=== PATIENT | male | born 1975 | race Caucasian/White ===

== ENCOUNTER 2018-08-14 13:38 | Emergency (ER) | payer OTHER, MEDICARE ==
[2018-08-14] MEDS ORDERED: Sodium Chloride 0.9% 10 ML Syringe FLUSH PRN (13:54)
[2018-08-14] MEDS ORDERED: Sodium Chloride 0.9% 1,000 ML IV ONE (14:08)
--- NOTE | 2018-08-14 14:19 | EDM.PDOC ---
ED HPI GENERAL MEDICAL PROBLEM - General Chief Complaint: General Stated Complaint: HEART RACING/PANIC ATTACK? Time Seen by Provider: 08/14/18 14:07 Source of Information: Reports: Patient History Limitations: Reports: No Limitations - History of Present Illness INITIAL COMMENTS - FREE TEXT/NARRATIVE: Patient is a 43-year-old gentleman who presents to the emergency department this afternoon with a complaint of palpitations. Patient states that approximately 3 hours ago, he felt anxious and noticed that his heart rate increased. Patient took his pulse and found to be 120 bpm. Also states that he felt a tingling sensation in his face. However he has had this on and off for about a week. He admits to smoking cessation 7 days ago. He is not currently taking any nicotine patch or other medication. Patient denies chest pain, shortness of breath, fever, lower extremity edema, early family cardiac history, Onset: Gradual Duration: Hour(s):, Improving Quality: Reports: Other (Denies chest pain) Improves with: Reports: Other (Spontaneously) Worsens with: Reports: Other (Anxiety) Context: Reports: Other (At rest) - Related Data Allergies Allergy/AdvReac Type Severity Reaction Status Date / Time No Known Drug Allergies Allergy Other Verified 08/14/18 13:41 Home Meds: Home Meds . [No Known Home Meds] 08/14/18 [History] Social & Family History - Tobacco Use Smoking Status *Q: Former Smoker Years of Tobacco use: 22 Packs/Tins Daily: 1 Used Tobacco, but Quit: Yes Month/Year Tobacco Last Used: 08/09/18 ED ROS GENERAL - Review of Systems Review Of Systems: ROS reveals no pertinent complaints other than HPI. Constitutional: Reports: No Symptoms HEENT: Reports: No Symptoms Respiratory: Reports: No Symptoms Cardiovascular: Reports: Palpitations Endocrine: Reports: No Symptoms GI/Abdominal: Reports: No Symptoms : Reports: No Symptoms Musculoskeletal: Reports: No Symptoms Skin: Reports: No Symptoms Neurological: Reports: Tingling (Bilateral facial cheeks) Psychiatric: Reports: Anxiety Hematologic/Lymphatic: Reports: No Symptoms Immunologic: Reports: No Symptoms ED EXAM, GENERAL - Physical Exam Exam: See Below Exam Limited By: No Limitations General Appearance: Alert, WD/WN, No Apparent Distress Eye Exam: Bilateral Eye: Normal Inspection Ears: Normal External Exam, Normal Canal, Normal TMs Nose: Normal Inspection, Normal Mucosa, No Blood Throat/Mouth: Normal Inspection, Normal Oropharynx, No Airway Compromise Head: Atraumatic, Normocephalic Neck: Normal Inspection, Supple, Non-Tender, Full Range of Motion Respiratory/Chest: No Respiratory Distress, Lungs Clear, Normal Breath Sounds, No Accessory Muscle Use, Chest Non-Tender Cardiovascular: Regular Rate, Rhythm, No Murmur GI/Abdominal: Normal Bowel Sounds, Non-Tender, No Organomegaly, No Distention, No Abnormal Bruit, No Mass Back Exam: Normal Inspection. 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) Neurological: Alert, Oriented, CN II-XII Intact, Normal Cognition, No Motor/ Sensory Deficits Psychiatric: Anxious Skin Exam: Warm, Dry, Intact, Normal Color, No Rash Lymphatic: No Adenopathy EKG INTERPRETATION EKG Date: 08/14/18 Time: 13:55 Rhythm: Other (Sinus tachycardia) Rate (Beats/Min): 105 Krebs: Normal P-Wave: Present QRS: Normal ST-T: Normal QT: Normal Comparison: NA - No Prior EKG Course - Vital Signs Last Recorded V/S: Last Vital Signs Temp 98.9 F 08/14/18 13:45 Pulse 120 H 08/14/18 13:45 Resp 16 08/14/18 13:45 BP 168/101 H 08/14/18 13:45 Pulse Ox 98 08/14/18 13:45 - Orders/Labs/Meds Orders: Active Orders 24 hr Category Date Time Status EKG Documentation Completion [RC] ASDIRECTED Care 08/14/18 13:54 Active Peripheral IV Care [RC] . DIRECTED Care 08/14/18 13:55 Active Sodium Chloride 0.9% @ 999 MLS/HR (1000ml) Med 08/14/18 14:08 Ordered Sodium Chloride 0.9% [Normal Saline] 1,000 ml IV .BOLUS Sodium Chloride 0.9% [Saline Flush] Med 08/14/18 13:54 Active 10 ml FLUSH Q8HR PRN Peripheral IV Insertion Adult [OM.PC] Routine Oth 08/14/18 13:54 Ordered Medication Orders Sodium Chloride (Normal Saline) 1,000 mls @ 999 mls/hr IV .BOLUS ONE Stop: 08/14/18 15:08 Last Admin: 08/14/18 14:20 Dose: 999 mls/hr Sodium Chloride (Saline Flush) 10 ml FLUSH Q8HR PRN PRN Reason: keep vein open Last Admin: 08/14/18 14:21 Dose: 10 ml Labs: Laboratory Tests 08/14/18 08/14/18 08/14/18 Range/Units 13:50 13:50 13:50 WBC 7.42 (5.00-10.00) 10^3/uL RBC 5.40 (4.50-6.00) 10^6/uL Hgb 15.9 (13.0-17.0) g/dL Hct 45.3 (40.0-52.0) % MCV 83.9 (82.0-92.0) fL MCH 29.4 (27.0-31.0) pg MCHC 35.1 (32.0-36.0) g/dL RDW 13.1 (11.5-14.5) % Plt Count 213 (150-400) 10^3/uL MPV 10.4 (7.4-10.4) fL Immature Gran % (Auto) 0.3 (0.0-5.0) % Neut % (Auto) 62.2 (50.0-70.0) % Lymph % (Auto) 26.1 (20.0-40.0) % [place] % (Auto) 8.9 H (2.0-8.0) % Eos % (Auto) 2.0 (1.0-3.0) % Baso % (Auto) 0.5 (0.0-1.0) % Immature Gran # (Auto) 0.02 (0.00-0.50) 10^3/uL Neut # (Auto) 4.61 (2.50-7.00) 10^3/uL Lymph # (Auto) 1.94 (1.00-4.00) 10^3/uL [place] # (Auto) 0.66 (0.10-0.80) 10^3/uL Eos # (Auto) 0.15 (0.10-0.30) 10^3/uL Baso # (Auto) 0.04 (0.00-0.10) 10^3/uL Sodium 141 (136-145) mmol/L Potassium 3.5 (3.3-5.3) mmol/L Chloride 105 (98-115) mmol/L Carbon Dioxide 25.4 (21.0-32.0) mmol/L Anion Gap 14.1 (5-15) mmol/L BUN 6 (6-25) mg/dL Creatinine 0.86 (0.51-1.17) mg/dL Est Cr Clr Drug Dosing 122.04 mL/min Estimated GFR (MDRD) > 60 mL/min Glucose 118 H (75 - 99) mg/dL Calcium 8.8 (8.7-10.3) mg/dL Total Bilirubin 0.2 (0.2-1.0) mg/dL AST 30 (15-37) U/L ALT 41 (12-78) U/L Alkaline Phosphatase 93 (46-116) IU/L Troponin I < 0.04 (0.00-0.070) ng/mL Total Protein 7.5 (6.4-8.2) g/dL Albumin 3.60 (3.00-4.80) g/dL Meds: Medications Generic Name Dose Route Start Last Admin Trade Name Freq PRN Reason Stop Dose Admin Sodium Chloride 1,000 mls @ 999 mls/hr 08/14/18 14:08 08/14/18 14:20 Normal Saline IV 08/14/18 15:08 999 mls/hr .BOLUS ONE Administration Sodium Chloride 10 ml 08/14/18 13:54 08/14/18 14:21 Saline Flush FLUSH 10 ml Q8HR PRN Administration keep vein open - Re-Assessments/Exams Free Text/Narrative Re-Assessment/Exam: 08/14/18 14:59 Patient afebrile, vital signs stable, heart rate 80. BP 140/73. Patient feeling much relieved from knowing that cardiac workup is negative. Suspicion for nicotine withdrawal. Patient declines nicotine patch, follow-up with PCP. 08/14/18 15:05 Departure - Departure Time of Disposition: 15:02 Disposition: Home, Self-Care 01 Condition: Good Clinical Impression: Anxiety, Nicotine withdrawal - Discharge Information Instructions: Generalized Anxiety Disorder, Adult, Tobacco Use Disorder, Coping with Quitting Smoking Referrals: PCP,None [Primary Care Provider] - Forms: ED Department Discharge Additional Instructions: Follow-up at [facility] in next 2-3 days. Return to emergency department sooner if symptoms continue or worsen. - My Orders Last 24 Hours: My Active Orders 08/14/18 13:54 EKG Documentation Completion [RC] ASDIRECTED Sodium Chloride 0.9% [Saline Flush] 10 ml FLUSH Q8HR PRN Peripheral IV Insertion Adult [OM.PC] Routine 08/14/18 13:55 Peripheral IV Care [RC] . DIRECTED 08/14/18 14:08 Sodium Chloride 0.9% @ 999 MLS/HR (1000ml) Sodium Chloride 0.9% [Normal Saline] 1,000 ml IV .BOLUS - Assessment/Plan Last 24 Hours: My Active Orders 08/14/18 13:54 EKG Documentation Completion [RC] ASDIRECTED Sodium Chloride 0.9% [Saline Flush] 10 ml FLUSH Q8HR PRN Peripheral IV Insertion Adult [OM.PC] Routine 08/14/18 13:55 Peripheral IV Care [RC] . DIRECTED 08/14/18 14:08 Sodium Chloride 0.9% @ 999 MLS/HR (1000ml) Sodium Chloride 0.9% [Normal Saline] 1,000 ml IV .BOLUS Assessment:: Anxiety Plan: Follow-up with PCP
[2018-08-14 14:30] LABS: ANION GAP 14.1 mmol/L (5-15); CHLORIDE,CL 105 mmol/L (98-115); SODIUM,NA 141 mmol/L (136-145)
== END 2018-08-14 15:32 | disposition home or self-care (01) ==
LOC: KA.ED 13:38
DX: F41.9 Anxiety disorder, unspecified (principal); F17.200 Nicotine dependence, unspecified, uncomplicated
CPT/HCPCS: 36415; 80053; 84484; 85025; 93005; 96360; 99285-25; J7030